=== PATIENT | male | born 1960 | race Caucasian/White ===

== ENCOUNTER → 2019-10-03 11:59 | Outpatient (CLI) | payer OTHER, SELFPAY ==
--- NOTE | ~2019-10-03 | MR_ITS ---
EXAMINATION: MR thoracic spine wo con EXAM DATE: 10/03/2019 13:04 INDICATION: Radiculopathy. Mid back pain. TECHNIQUE: Multi-sequential, multiplanar MR images of the thoracic spine were obtained without contra st. Sagittal T1, T2, T2 fat saturation, axial T2 weighted images reviewed. Comparison is made to ino or examination from 03/18/2018. FINDINGS: The spinal cord signal intensity and intrinsic morphology is normal. Mild multilevel thorac ic disc disease with small bulges and protrusions at several mid thoracic levels. At T9-10 disc bulge and moderate facet arthropathy cause mild to moderate central canal stenosis. Otherwise the thoracic central canal is widely patent. There is moderate to severe right neural foraminal stenosis at T8-9, otherwise normal abdomen mild thoracic neural foraminal stenosis. Vertebral body heights are maintai therese. There are no suspicious marrow signal abnormalities. Paraspinal soft tissue is unremarkable. Ove rall mild to moderate thoracic facet arthropathy. IMPRESSION: T8-9 moderate to severe right neural foraminal stenosis. Otherwise relatively mild thora cic spondylosis. Reviewed, dictated and finalized at location A. IMPRESSION: T8-9 moderate to severe right neural foraminal stenosis. Otherwise relatively mild thoracic spondylosis.
--- NOTE | ~2019-10-03 | MR_ITS ---
EXAMINATION: MR lumbar spine wo con DATE: 10/03/2019 13:17 INDICATION: Radiculopathy, site unspecified. Mid to low back pain. TECHNIQUE: Magnetic resonance imaging (MRI) of the lumbar spine was performed without intravenous con trast. Sequences included sagittal T2-weighted FSE, sagittal T2-weighted FS FSE, sagittal T1-weighted FSE, and axial T2-weighted FSE. COMPARISON: Lumbar spine MRI 02/24/2018 FINDINGS: Bone alignment is normal. Vertebral body heights are normal. There is a benign bone island in L4 vertebral body. There is mildly decreased disc height at L4-L5 and severely decreased disc heig ht at L5-S1. The distal spinal cord signal intensity is normal. The conus medullaris is at L1-L2. The following disc levels are specifically discussed: L1-L2: The disc does not extend beyond the endplate margin. There is mild right and moderate left fac et joint osteoarthritis. There is no neural foraminal stenosis. There is no central canal stenosis. L2-L3: The disc is bulging. There is mild bilateral facet joint osteoarthritis. There is mild bilater al neural foraminal stenosis. There is mild central canal stenosis. L3-L4: The disc is bulging. There is mild left facet joint osteoarthritis. There is mild bilateral ne ural foraminal stenosis. There is mild central canal stenosis. L4-L5: The disc is bulging and has an annular fissure. There is mild bilateral facet joint osteoarthr itis. There is moderate bilateral neural foraminal stenosis. There is mild central canal stenosis. L5-S1: The disc is bulging and has an annular fissure. There is severe right and mild left facet join t osteoarthritis. There is moderate right and mild left neural foraminal stenosis. There is no centra l canal stenosis. IMPRESSION: 1. Severe lower lumbar spondylosis, stable from 02/24/2018. Reviewed, dictated and finalized at location B.
--- NOTE | ~2019-10-03 | MR_ITS ---
EXAMINATION: MR cervical spine wo con DATE: 10/03/2019 13:04 INDICATION: Radiculopathy, site unspecified. TECHNIQUE: Magnetic resonance imaging (MRI) of the cervical spine was performed without intravenous c ontrast. Sequences included sagittal T2-weighted FSE, sagittal T2-weighted FS FSE, sagittal T1-weight ed FSE, axial MERGE, and axial T2-weighted FSE. COMPARISON: Cervical spine MRI 03/18/2018 FINDINGS: There is mild kyphosis of cervical spine. Vertebral body heights are normal. There is mildl y decreased disc height at C4-C5 and C5-C6 and severely decreased disc at C6-C7. The spinal cord sign al intensity is normal. The following disc levels are specifically discussed: C2-C3: The disc does not extend beyond the endplate margin. There is no uncovertebral joint osteoarth ritis. There is mild right and moderate left facet joint osteoarthritis. There is no neural foraminal stenosis. There is no central canal stenosis. C3-C4: The disc does not extend beyond the endplate margin. There is no uncovertebral joint osteoarth ritis. There is mild left facet joint osteoarthritis. There is no neural foraminal stenosis. There is no central canal stenosis. C4-C5: The disc is mildly bulging. There is no uncovertebral joint osteoarthritis. There is mild bila teral facet joint osteoarthritis. There is no neural foraminal stenosis. There is no central canal st enosis. C5-C6: The disc is bulging. There is moderate bilateral uncovertebral joint osteoarthritis. There is mild bilateral facet joint osteoarthritis. There is mild bilateral neural foraminal stenosis. There i s mild central canal stenosis with ventral indentation of spinal cord. C6-C7: The disc is bulging. There is moderate right and severe left uncovertebral joint osteoarthriti s. There is no facet joint osteoarthritis. There is mild bilateral neural foraminal stenosis. There i s mild central canal stenosis with ventral indentation of spinal cord. C7-T1: There is a central protrusion. There is no uncovertebral joint osteoarthritis. There is mild b ilateral facet joint osteoarthritis. There is no neural foraminal stenosis. There is no central canal stenosis. IMPRESSION: 1. Moderate cervical spondylosis, stable from 03/18/2018. Reviewed, dictated and finalized at location B.
== END ==
PROVIDERS: PCP Family Medicine; Visit Provider Family Medicine
DX: M47.894 Other spondylosis, thoracic region (principal); M47.892 Other spondylosis, cervical region; M47.896 Other spondylosis, lumbar region
CPT/HCPCS: 72141; 72146; 72148

== ENCOUNTER → 2019-10-18 10:12 | Outpatient (CLI) | payer OTHER, SELFPAY ==
--- NOTE | ~2019-10-18 | XR_ITS ---
EXAMINATION: XR barium swallow DATE: 10/18/2019 11:10 INDICATION: Dysphagia. Neck pain. TECHNIQUE: The patient drank thick barium, gas-producing crystals, and thin barium. Fluoroscopy of th e hypopharynx and esophagus was performed. Fluoroscopy exposure time was 0.4 minutes. The total numbe r of images was 245. The dose-area product was 0.847 Gy-cm^2. COMPARISON: None. FINDINGS: There is no mass or stricture of the esophagus. There is a small traction diverticulum of t he mid esophagus. Esophageal motility is normal. There is no hiatal hernia. There was no gastroesopha geal reflux with provocative maneuvers. IMPRESSION: 1. Small traction diverticulum of the mid esophagus. Reviewed, dictated and finalized at location B.
== END ==
PROVIDERS: PCP Family Medicine; Visit Provider Otolaryngology
DX: M54.2 Cervicalgia (principal); K22.5 Diverticulum of esophagus, acquired
CPT/HCPCS: 74220

== ENCOUNTER 2020-04-25 08:21 | Emergency (ER) | payer OTHER, SELFPAY ==
--- NOTE | 2020-04-25 08:24 | ED.URI ---
HPI - URI/Sore Throat General Chief Complaint: Upper Respiratory Infection Stated Complaint: fatigue/runny nose Time Seen by Provider: 04/25/20 08:49 Source: patient and RN notes reviewed Mode of arrival: ambulatory Limitations: no limitations History of Present Illness HPI Narrative: 59-year-old male presents with concern for exposure to Covid, rhinorrhea, fatigue, sneezing, mild sore throat. Reports symptoms are mild. Reports he was exposed to Covid on April 16, began having symptoms on April 19. Denies any body aches, chills, fever, sweats, loss of sense of taste or smell. Denies any intervention. MD elicited complaint: rhinorrhea Related Data Home Medications Medication Instructions Recorded Confirmed No Home Medications 09/27/19 09/27/19 Allergies Allergy/AdvReac Type Severity Reaction Status Date / Time prednisone Allergy Mild SHAKY Verified 04/25/20 08:44 doxycycline Allergy Unknown Unknown Verified 04/25/20 08:44 Sulfa (Sulfonamide Allergy Unknown Skin Verified 04/25/20 08:44 Antibiotics) Reaction Review of Systems Review of Systems: Narrative: CONSTITUTIONAL: Denies malaise, chills, sweats, or fever. Reports fatigue EYES: Denies visual changes, redness, or discharge. ENT: Reports rhinorrhea, mild sore throat. Denies congestion, sinus pain, otalgia CARDIOVASCULAR: Denies chest pain, palpitations, or edema. RESPIRATORY: Denies cough or dyspnea. GASTROINTESTINAL: Denies abdominal pain, nausea, vomiting, diarrhea SKIN: Denies rash or itching. MUSCULOSKELETAL: Denies myalgia. NEUROLOGIC: Denies headache. All systems reviewed & are unremarkable except as noted in HPI and below PMFSH Surgical History Surgical History Hx of bilateral cataract extraction Family History Family History Father Family history of cardiovascular disease, Onset Age: 52 Mother Family history of malignant neoplasm of breast Other Hypertension Social History Social History Smoking status: Never smoker Smoking end date: 02/22/77 Alcohol intake: current Gender identity (if verbalized by the patient): Male Comments At time of signature, agree with nursing past medical, surgical, social and family history. There is no relevant family history pertinent to the presenting complaint Exam Narrative: Exam Narrative: GENERAL: Well-appearing, well-nourished, and in no acute distress. HEAD: Normocephalic EYES: PERRLA, conjunctivae clear ENT: Nares clear, turbinates erythematous, clear discharge. Mucous membranes moist. TM pearly helton with sharp light reflex bilaterally; no tragal tenderness. Oropharynx not erythematous without lesions. Tonsils not enlarged and without exudate, no drooling, no hoarseness, no trismus, uvula midline. NECK: Supple. No lymphadenopathy CHEST: Clear to auscultation, breath sounds equal. No wheezing, rhonchi, rales, or stridor. No respiratory distress, speaks in full sentences. HEART: Regular rate and rhythm. No murmur heard. SKIN: Warm, dry, no rash. NEURO: Alert and oriented x3. PSYCH: Normal mood and affect Course Course Emergency Course: Patient is aware of diagnosis, understands and agrees to treatment plan. Anticipatory guidance given. Patient agrees to follow-up as directed and is aware of reasons to seek care at the emergency department. Portions of this record may have been created with voice recognition software Vital Signs Vital signs: Vital Signs Temperature 96.3 F L 04/25/20 08:41 Pulse Rate 77 04/25/20 08:41 Respiratory Rate 16 04/25/20 08:41 Blood Pressure 126/83 04/25/20 08:41 Pulse Oximetry 97 04/25/20 08:41 Temperature 96.3 F L 04/25/20 08:41 Pulse Rate 77 04/25/20 08:41 Respiratory Rate 16 04/25/20 08:41 Blood Pressure 126/83 04/25/20 08:41 Pulse Oximetry 97 04/25/20 08:4
[2020-04-25 08:41] VITALS: BP 126/83; PULSE 77; RESP 16; TEMP 35.7; O2SAT 97
== END 2020-04-25 09:05 | disposition home or self-care (01) ==
PROVIDERS: Emergency Provider Nurse Practitioner; PCP Family Medicine
DX: J06.9 Acute upper respiratory infection, unspecified (principal); Z20.822 Contact with and (suspected) exposure to COVID-19; Z98.42 Cataract extraction status, left eye; Z98.41 Cataract extraction status, right eye; G47.30 Sleep apnea, unspecified
CPT/HCPCS: 87426; 99213; C9803; G0463

== ENCOUNTER 2023-04-12 13:37 | Outpatient (CLI) | payer OTHER, SELFPAY ==
--- NOTE | 2023-04-12 | ECG_ITS ---
Measurements Intervals [place] Rate: 68 P: 68 NC: 190 QRS: 39 QRSD: 90 T: 33 QT: 365 QTc: 388 Interpretive Statements SINUS RHYTHM NORMAL ECG NO PREVIOUS ECG AVAILABLE FOR COMPARISON Electronically Signed On 04-12-2023 18:34:02 [employer] by Sj Lugo M.D.
== END 2023-04-12 13:38 | disposition home or self-care (01) ==
LOC: ANHCARD 13:43
PROVIDERS: Visit Provider Neurological Surgery
DX: Z01.818 Encounter for other preprocedural examination (principal)
CPT/HCPCS: 93005

== ENCOUNTER 2023-04-28 13:54 | Outpatient (CLI) | payer OTHER, SELFPAY ==
--- NOTE | ~2023-04-28 | XR_ITS ---
EXAMINATION: XR elbow LT min 3V DATE: 04/28/2023 14:12 INDICATION: Lesion of ulnar nerve, left upper limb. Left elbow pain. TECHNIQUE: 4 views of left elbow were obtained. COMPARISON: None. FINDINGS: Bone alignment is normal. No fracture. Joint spaces are normal. There is heterotopic ossifi cation distal to medial humeral epicondyle. No elbow joint effusion. IMPRESSION: 1. No arthritis. Reviewed, dictated and finalized at location E. LA TAPPER IMPRESSION: 1. No arthritis.
== END 2023-04-28 13:55 ==
PROVIDERS: PCP Emergency Medicine; Visit Provider Emergency Medicine
DX: G56.22 Lesion of ulnar nerve, left upper limb (principal)
CPT/HCPCS: 73080

== ENCOUNTER 2023-06-23 13:34 | Outpatient (CLI) | payer OTHER, SELFPAY ==
--- NOTE | 2023-06-23 14:00 | NEURO_ITS ---
Impression: # Complains of left hand/5th finger numbness. Non-diabetic and construction manager. # No Carpal Tunnel Syndrome. # Left ulnar neuropathy across the elbow. # Normal needle/EMG exam. Nerve Conduction Studies Anti Sensory Summary Table Stim Site NR Peak (ms) P-T Amp (?V) Site1 Site2 Delta-P (ms) Dist (cm) Kristofer (m/s) Left Median Anti Sensory (2-3nd Digit) Wrist 3.1 35.6 Wrist 2-3nd Digit 3.1 14.0 45 Wrist 3.3 37.2 Wrist 2-3nd Digit 3.1 14.0 45 Left Radial Anti Sensory (Base 1st Digit) Wrist 1.8 20.9 Wrist Base 1st Digit 1.8 0.0 Left Ulnar Anti Sensory (5th Digit) Wrist 2.8 56.4 Wrist 5th Digit 2.8 14.0 50 Motor Summary Table Stim Site NR Onset (ms) O-P Amp (mV) Site1 Site2 Delta-0 (ms) Dist (cm) Kristofer (m/s) Left Median Motor (Abd Poll Brev) Wrist 2.9 4.0 Elbow Wrist 5.4 34.0 63 Elbow 8.3 3.4 Left Ulnar Motor (Abd Dig Minimi) Wrist 2.5 4.5 A Elbow Wrist 6.2 34.0 55 A Elbow 8.7 3.8 B Elbow Wrist 4.0 25.0 63 B Elbow 6.5 2.8 F Wave Studies NR F-Lat (ms) L-R F-Lat (ms) Left Median (Mrkrs) (Abd Poll Brev) 28.34 Left Ulnar (Mrkrs) (Abd Dig Min) 27.82 EMG Side Muscle Nerve Root Ins Act Fibs Amp Dur Recrt Comment Left 1stDorInt Ulnar C8-T1 Nml Nml Nml Nml Nml Left Ext Indicis Radial (Post Int) C7-8 Nml Nml Nml Nml Nml Left Ext Digitorum Radial (Post Int) C7-8 Nml Nml Nml Nml Nml Left BrachioRad Radial C5-6 Nml Nml Nml Nml Nml Left PronatorTeres Median C6-7 Nml Nml Nml Nml Nml Left Abd Poll Brev Median C8-T1 Nml Nml Nml Nml Nml Left ABD Dig Min Ulnar C8-T1 Nml Nml Nml Nml Nml Left Abd Poll Long Radial (Post Int) C7-8 Nml Nml Nml Nml Nml Left ExtCarUln Radial (Post Int) C7-8 Nml Nml Nml Nml Nml MTDD
== END 2023-06-23 13:35 | disposition home or self-care (01) ==
PROVIDERS: PCP Emergency Medicine; Visit Provider Emergency Medicine
DX: G56.22 Lesion of ulnar nerve, left upper limb (principal)
CPT/HCPCS: 95886; 95909